=== PATIENT | male | born 1975 | race Caucasian/White ===

== ENCOUNTER 2020-09-16 10:53 | Emergency (ER) | payer OTHER ==
[2020-09-16 11:51] LABS: BASOPHIL 0.4 % (0-2); EOSINOPHIL 1.3 % (0-5); HCT 44.9 % (42.0-52.0); HGB 15.3 g/dl (13.2-18.0); LYMPHOCYTE 27.7 % (15-48); MCH 31.5 pg (25.0-31.0); MCHC 34.1 g/dL (32.0-36.0); MCV 92.6 fL (78.0-100.0); MONOCYTE 7.8 % (0-12); MPV 10.2 fL (6.0-9.5); NEUTROPHIL 62.6 % (41-80); NRBC 0; PLT 151 K/uL (150-400); RBC 4.85 M/uL (4.70-6.00); RDW 12.8 % (11.5-14.0); WBC 5.2 K/uL (4.0-10.5)
[2020-09-16 12:07] LABS: BILIRUBIN - TOTAL 0.5 mg/dL (0.2-1.0); BUN/CREAT RATIO (CALC) 16.7 RATIO; CREATININE 1.02 mg/dL (0.67-1.17); GLOBULIN (CALCULATION) 3.4 g/dL; POTASSIUM 4.2 mmol/L (3.5-5.1); TOTAL PROTEIN 7.4 g/dL (6.4-8.2)
[2020-09-16 13:19] LABS: INR 1.01 (0.9-1.2); PROTHROMBIN TIME 12.7 SECONDS (11.8-13.4); PTT 25.2 SECONDS (24.4-34.7)
== END 2020-09-16 16:20 | disposition home or self-care (01) ==
LOC: FER 10:53
PROVIDERS: Internal Medicine
DX: R07.89 Other chest pain (principal); G43.909 Migraine, unspecified, not intractable, without status migrainosus; H53.8 Other visual disturbances
CPT/HCPCS: 36415; 71045; 80053; 83880; 84484; 85025; 85610; 85730; 86140; 93005; Q9967